=== PATIENT | male | born 1960 | race Two or more races ===

== ENCOUNTER 2023-09-30 07:59 | Outpatient (CLI) | payer OTHER | END 2023-09-30 08:14 | disposition home or self-care (01) | LOC: SONOGRAMA 07:59 | PROVIDERS: ATTEND Urology | DX: R80.9 Proteinuria, unspecified (principal); I11.9 Hypertensive heart disease without heart failure; R80.8 Other proteinuria; E78.00 Pure hypercholesterolemia, unspecified; E11.69 Type 2 diabetes mellitus with other specified complication ==

== ENCOUNTER 2025-07-14 09:24 | Outpatient (CLI) | payer OTHER | END 2025-07-14 09:25 | disposition home or self-care (01) | LOC: NUCLEAR 09:24 | PROVIDERS: ATTEND Internal Medicine | DX: R22.43 Localized swelling, mass and lump, lower limb, bilateral (principal); R80.9 Proteinuria, unspecified ==